=== PATIENT | female | born 1990 | race Caucasian/White ===

== ENCOUNTER 2016-08-01 21:41 | Emergency (ER) | payer MEDICAID ==
[2016-08-01] MEDS ORDERED: Acetaminophen 500 MG TAB ONE (22:08)
--- NOTE | 2016-08-01 22:11 | ED Physician Chart ---
Chief Complaint/HPI - Patient Information Date Seen:: 08/01/16 Time Seen:: 21:40 Chief Complaint:: headache History of Present Illness:: Patient presents with complaint of left retro-orbital headache of 4 hours duration. Patient states that she was previously healthy except for a sore throat with swollen lymph glands one week ago that has resolved. She reports that the headache started behind the right eye and was initially mildly painful but gradually became worse, extending over the left forehead and eventually the bilateral forehead. In addition she complains of mild left eye photophobia. There was no distinct aura or other prodromal complaint, there is no nausea or vomiting, she has no distal symptoms, there is no neck pain. She describes the pain as intermittently dull with waves of sharpness and it hurts to move her eye to look around. She has had bad headaches in the past but she states that this one is different in terms of the left eye involvement. It was no loss of vision or change in her visual acuity in either eye. She does feel slightly dizzy at times but denies lazaro vertigo symptoms. Patient denies trauma and there is no obvious new environmental exposure. She does smoke cigarettes and occasionally use energy boosting drinks but denies street drugs, prescription drugs and took 200 mg of Motrin prior to presentation to the emergency room without improvement. Allergies:: Allergies Allergy/AdvReac Type Severity Reaction Status Date / Time No Known Allergies Allergy Verified 08/01/16 21:50 Vitals:: Vital Signs - 8 hr 08/01/16 21:45 Temp 98.1 F HR 95 RR 18 BP 137/94 O2 Sat % 100 Historian:: Patient Review:: Nurse's Note Reviewed Review of Systems - Review of Systems Head: Headache, Light headed (all other review of systems is otherwise negative except for that mentioned in the chief complaint or history of present illness) Past Medical History - Past Medical History Past Medical History: Thyroid disorder Family History: HTN, Other (migraines) Social History: Smoker, No Drug Use, Single, Employed Surgical History: other (thyroid cyst) Psychiatricy History: None Medication: Reviewed (no control pills or other hormones) Family Medical History - Family Member Mother History Unknown: Yes Hx Family Hypertension: Yes Physical Exam - Physical Examination General/Constitutional: Awake, Well-developed, well-nourished, Alert, GCS 15, Non-toxic appearing, Ambulatory Other Gen/Cons comments:: Physical exam: In general the patient is a 25-year-old female that ambulates normally to the [facility], gets on it and shows no neurological impairment of any kind. She is alert and oriented, conversant, and has no respiratory distress. She prefers to keep her eyes closed and rubs her left eye intermittently. She has a mildly elevated diastolic blood pressure but the rest of her vital signs are normal. HEENT exam reveals intact motor function in the cranial nerves symmetrically. PERRLA, EOMI, direct funduscopy reveals sharp disks with normal venous pulsations and normal pupillary function symmetrically. The patient tolerates the light from the funduscope without demonstration of pain. The patient has some palpable tenderness over the forehead on the left side that this is not in the area of the frontal sinus. There is no evidence of proptosis and the maxillary sinus area is nontender, without erythema or swelling. The neck is supple without adenopathy or stridor. Patient moves all extremities equally, symmetrically, and without focal deficit. There is no obvious discoloration of the scalp nor any other sign of trauma. The rest of the physical exam is unremarkable. Assessment - Assessment General Assessment: Young woman with 4 hours of gradually worsening left-sided headache in the left retro-orbital area. Although this is not a classic presentation is most consistent with vasospastic etiology and not of a hemorrhagic nature nor that of infection. There were no obvious environmental triggers for vasospastic event. All aspects of the history and physical and differential diagnosis were discussed with the patient and she expresses verbal understanding. She was offered an injection of Toradol or an oral dose of ibuprofen and Tylenol as the first line treatment for her headache and she requests only the ibuprofen orally to start. ED Septic Shock - . Is Septic Shock (SBP<90, OR Lactate>4 mmol\L) present?: No - <6hrs of presentation: Vital Signs: Vital Signs - 8 hr 08/01/16 21:45 Temp 98.1 F HR 95 RR 18 BP 137/94 O2 Sat % 100 Reassessment (Disposition) - Reassessment Reassessment:: Patient states that headache pain was initially 7/10 and has decreased to 4/10 during her hospital admission. She states that she has to work early in the morning and wishes to leave the hospital. All aspects of care and clinical assessment were discussed with the patient and she expresses verbal understanding of the need for routine clinic follow-up if she is not fully recovered and the need to return to the emergency room if she is clinically worse. Specifically she was asked to return for worsening headache, fever, vomiting, or any unexpected worsening symptomatology. Reassessment Condition:: Improved - Diagnosis Diagnosis:: #1. Headache, suspect vasospastic etiology. - Aftercare/Follow up Instructions Aftercare/Follow-Up Instructions:: Counseled pt regarding lab results/diagnosis & need follow up, Refer to Discharge Instructions - Patient Disposition Discharge/Transfer:: Home Condition at Disposition:: Stable, Improved ED Discharge Plan - Patient Disposition Admit/Discharge/Transfer: PT DISCHARGED HOME Condition at Disposition: Improved Additional Instructions: FOLLOW UP WITH YOUR DOCTOR IN 2-3 DAYS AND TO COME BACK TO ER IF SYMPTOMS WORSEN
== END 2016-08-01 22:50 | disposition home or self-care (01) ==
LOC: ER 21:41
DX: R51 Headache (principal); E07.9 Disorder of thyroid, unspecified; F17.200 Nicotine dependence, unspecified, uncomplicated
CPT/HCPCS: Z7502; Z7610